=== PATIENT | female | born 1990 | race Hispanic/Latino ===

== ENCOUNTER 2019-04-27 17:06 | Emergency (ER) | payer SELFPAY ==
[2019-04-27] MEDS ORDERED: Docusate 100 MG CAP PO SCH (18:45)
[2019-04-27] MEDS ORDERED: Docusate 100 MG CAP FS SCH (19:00)
[2019-04-27] MEDS ORDERED: Ciprofloxacin HCL/Dexameth Otic Drops 7.5 ml Bottle ONE (19:49)
== END 2019-04-27 19:51 | disposition home or self-care (01) ==
LOC: ERS 17:06
DX: H61.21 Impacted cerumen, right ear (principal); H60.91 Unspecified otitis externa, right ear
CPT/HCPCS: 69209

== ENCOUNTER 2022-02-11 15:55 | Emergency (ER) | payer SELFPAY | END 2022-02-11 17:32 | disposition home or self-care (01) | LOC: ERS 15:55 | DX: H61.22 Impacted cerumen, left ear (principal) | CPT/HCPCS: 99282 ==

== ENCOUNTER 2023-10-24 07:55 | Emergency (ER) | payer SELFPAY ==
[2023-10-24 08:56] LABS: Influenza A by NAA Not Detected (NotDetected); Influenza B by NAA Not Detected (NotDetected); SARS-CoV-2 NAA Rapid Test Not Detected (NotDetected)
== END 2023-10-24 11:14 | disposition home or self-care (01) ==
LOC: ERS 07:55
DX: B34.9 Viral infection, unspecified (principal)
CPT/HCPCS: 71046